=== PATIENT | male | born 1950 | race Caucasian/White ===

== ENCOUNTER 2017-11-19 14:36 | Emergency (ER) | payer MEDICARE, OTHER ==
[2017-11-19] MEDS ORDERED: LORazepam 2 MG/ML SDV IM ONE (15:09)
--- NOTE | 2017-11-19 16:41 | EDM.PDOCBH ---
ED HPI GENERAL MEDICAL PROBLEM - General Chief Complaint: Behavioral/Psych Stated Complaint: PANIC ATTACK Time Seen by Provider: 11/19/17 15:24 Source of Information: Reports: Patient, Family - History of Present Illness INITIAL COMMENTS - FREE TEXT/NARRATIVE: This patient has a great deal of anxiety and it very worried that he has pulmonary fibrosis. Big workup done. He had a pulse oximeter on recently while sleeping and it was in 70'2 so he's terrified. Breathing ok. Just having a panic attack. Bilateral Leg Pain Score (Numeric/FACES): 4 - Related Data Allergies Allergy/AdvReac Type Severity Reaction Status Date / Time No Known Allergies Allergy Verified 11/19/17 14:54 Home Meds: Home Meds Acetaminophen [Tylenol Extra Strength] 1,000 mg PO Q6H PRN 11/19/17 [History] Melatonin 5 mg PO BEDTIME 11/19/17 [History] Tamsulosin [Flomax] 0.4 mg PO BEDTIME 11/19/17 [History] Past Medical History Genitourinary History: Reports: BPH, Other (See Below) Other Genitourinary History: sensative bladder Musculoskeletal History: Reports: Fibromyalgia - Infectious Disease History Infectious Disease History: Reports: Chicken Pox, Measles, Mumps - Past Surgical History Male Surgical History: Reports: None Musculoskeletal Surgical History: Reports: None Dermatological Surgical History: Reports: None Social & Family History - Tobacco Use Smoking Status *Q: Never Smoker Second Hand Smoke Exposure: No - Caffeine Use Caffeine Use: Reports: Tea - Recreational Drug Use Recreational Drug Use: No ED ROS GENERAL - Review of Systems Review Of Systems: ROS reveals no pertinent complaints other than HPI. ED EXAM, BEHAVIORAL HEALTH - Physical Exam Exam: See Below Exam Limited By: No Limitations General Appearance: Alert, Anxious, Thin Eye Exam: Bilateral Eye: Normal Inspection Respiratory/Chest: Lungs Clear Cardiovascular: Regular Rate, Rhythm GI/Abdominal: Non-Tender Extremities: Normal Inspection Neurological: Alert, CN II-XII Intact Psychiatric: Flat Affect Skin Exam: Warm, Dry COURSE, BEHAVIORAL HEALTH COMP - Course Vital Signs: Last Vital Signs Temp 37.0 C 11/19/17 14:53 Pulse 66 11/19/17 15:49 Resp 18 11/19/17 15:49 BP 159/92 H 11/19/17 15:49 Pulse Ox 96 11/19/17 15:49 Orders, Labs, Meds: Medications Discontinued Medications Generic Name Dose Route Start Last Admin Trade Name Jia PRN Reason Stop Dose Admin Lorazepam 1 mg 11/19/17 15:09 11/19/17 15:17 Ativan IM 11/19/17 15:10 1 mg ONETIME ONE Administration Re-Assessment/Re-Exam: gave 1 mg ativan im. Patient much better afterwards. Departure - Departure Time of Disposition: 16:40 Disposition: Home, Self-Care 01 Condition: Fair Clinical Impression: Acute anxiety - Discharge Information Referrals: PCP,None [Primary Care Provider] - Additional Instructions: Take ativan 1 mg, 1 tab twice daily as needed for anxiety. See your doctor as needed.
== END 2017-11-19 16:53 | disposition home or self-care (01) ==
LOC: JP.ED 14:36
DX: F41.9 Anxiety disorder, unspecified (principal)
CPT/HCPCS: 96372; 99283; J2060